=== PATIENT | female | born 1965 | race Caucasian/White ===

== ENCOUNTER 2018-10-22 15:46 | Emergency (ER) | payer OTHER ==
[2018-10-22 16:54] LABS: Absolute Lymphocytes (CBC) 2.2 K/uL (0.7-4.9); Absolute Monocytes 0.5 K/uL (0.1-1.3); Absolute Neutrophil 4.5 K/uL (1.8-8.0); Basophils % 0.5 % (0-1.3); Eosinophils % 3.3 % (0-4.4); Hematocrit 38.7 % (36.0-45.0); Lymphocytes % 29.7 % (15.3-44.8); MPV 8.1 fL (7.6-11.3); Monocytes % 6.5 % (3.3-12.3)
[2018-10-22 17:09] LABS: Albumin 3.9 g/dL (3.4-5.0); Bilirubin Total 0.3 mg/dL (0.2-1.0); Potassium 3.6 mmol/L (3.5-5.1); Protein, Total 7.9 g/dL (6.4-8.2)
--- NOTE | 2018-10-22 17:30 | ER ---
Nurse's Notes [facility] Name: Vivian Bautista Age: 53 yrs Sex: Female : 1965 Arrival Date: 10/22/2018 Time: 15:54 Bed 30 Private MD: VERA ARIAS Diagnosis: Shortness of breath Presentation: 10/22 16:05 Presenting complaint: Patient states: sent by Bernadette Arias [employer]PUT[employer] SCI[employer] PROFESS[employer] for low hemoglobin sv of 7.4. c/o generalized weakness and SOB. Transition of care: patient was not received from another setting of care. Onset of symptoms was October 22, 2018. Care prior to arrival: None. 16:05 Method Of Arrival: Ambulatory sv 16:05 Acuity: FOREST 3 sv 16:15 Initial Sepsis Screen: Does the patient meet any 2 criteria? No. Patient's initial rb1 sepsis screen is negative. Does the patient have a suspected source of infection? No. Patient's initial sepsis screen is negative. 16:15 Risk Assessment: Do you want to hurt yourself or someone else? Patient reports no rb1 desire to harm self or others. 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 [Active]; paroxetine HCl 40 mg oral tab 1 tab once daily [Active]; cyclobenzaprine 10 mg Oral tab 1 tab as needed [Active]; Tylenol-Codeine #4 300-60 mg Oral tab 1 tab as needed [Active]; Fioricet 50-300-40 mg Oral cap 1 cap as needed [Active]; sumatriptan Succinate 50 mg 1 tabs as needed [Active]; - PMHx: 16:07 Anxiety; Diabetes - NIDDM; Hypertension; sv - PSHx: 16:07 Hysterectomy; ; sv - Immunization history:: Adult Immunizations up to date. - Social history:: Patient/guardian denies using alcohol, street drugs, The patient lives with family, Smoking status: Patient uses tobacco products, denies chronic smoking, but will smoke occasionally. - Family history:: not pertinent. - Ebola Screening: : Patient negative for fever greater than or equal to 101.5 degrees Fahrenheit, and additional compatible Ebola Virus Disease symptoms. Screenin:15 Abuse screen: Denies threats or abuse. Nutritional screening: No deficits noted. rb1 Tuberculosis screening: No symptoms or risk factors identified. Fall Risk None identified. Assessment: 16:15 General: Appears in no apparent distress. comfortable, Behavior is calm, cooperative, rb1 Reports fatigue for Denies fever. Pain: Denies pain. Neuro: Level of Consciousness is awake, alert, obeys commands, Oriented to person, place, time, situation. Cardiovascular: Capillary refill < 3 seconds is brisk in bilateral fingers. Respiratory: Airway is patent Respiratory effort is even, unlabored, Respiratory pattern is regular, symmetrical. GI: No signs and/or symptoms were reported involving the gastrointestinal system. : No signs and/or symptoms were reported regarding the genitourinary system. Derm: Skin is dry, Skin is normal, Skin temperature is warm. Musculoskeletal: Range of motion: intact in all extremities. 17:15 Reassessment: Patient appears in no apparent distress at this time. No changes from rb1 previously documented assessment. at bedside. 17:50 Reassessment: Patient appears in no apparent distress at this time. Patient and/or rb1 family updated on plan of care and expected duration. Pain level reassessed. Patient is alert, oriented x 3, equal unlabored respirations, skin warm/dry/pink. Patient denies pain at this time. Vital Signs: 16:07 BP 121 / 89; Pulse 88; Resp 18; Temp 97; Pulse Ox 98% ; Weight 78.93 kg; Height 5 ft. 2 sv in. (157.48 cm); 16:15 BP 115 / 81; Pulse 79; Resp 17; Pulse Ox 100% on R/A; Pain 0/10; rb1 17:15 BP 118 / 81; Pulse 79; Resp 19; Pulse Ox 99% on R/A; rb1 17:55 BP 121 / 79; Pulse 83; Resp 18; Pulse Ox 100% on R/A; Pain 0/10; rb1 16:07 Body Mass Index 31.83 (78.93 kg, 157.48 cm) sv ED Course: 15:54 Patient arrived in ED. sb2 15:55 VERA ARIAS is Private Physician. sb2 16:06 Triage completed. sv 16:09 Arm band placed on Patient placed in an exam room, Patient notified of wait time. sv 16:13 Rebecca Barriga, RN is Primary Nurse. rb1 16:15 Patient has correct armband on for positive identification. Bed in low position. Call rb1 light in reach. Side rails up X 1. Pulse ox on. NIBP on. 16:16 Ophelia Carrera MD is Attending Physician. ma2 16:40 Inserted saline lock: 22 gauge in right antecubital area, using aseptic technique. rb1 Blood collected. 16:44 sent to lab. rb1 18:00 No provider procedures requiring assistance completed. IV discontinued, intact, rb1 bleeding controlled, No redness/swelling at site. Pressure dressing applied. Administered Medications: No medications were administered Outcome: 17:29 Discharge ordered by . ma2 18:00 Patient left the ED. rb1 18:00 Discharged to home ambulatory, with significant other. rb1 18:00 Condition: stable 18:00 Discharge instructions given to patient, Instructed on discharge instructions, follow up and referral plans. Demonstrated understanding of instructions, follow-up care, Prescriptions given X none Signatures: Bernadette Jackson RN RN Rebecca Barriga, RN RN [facility] Ophelia Carrera MD MD ma2 Shona Shirley sb2 Corrections: (The following items were deleted from the chart) 16:09 16:07 Pulse 88bpm; Resp 18bpm; Pulse Ox 98%; Temp 97F; 78.93 kg; Height 5 ft. 2 in.; sv BMI: 31.8; sv 18:32 18:28 Patient left the ED. rb1 rb1
--- NOTE | 2018-10-22 17:30 | EDPHYS ---
Physician Documentation [facility] Name: Vivian Bautista Age: 53 yrs Sex: Female : 1965 Arrival Date: 10/22/2018 Time: 15:54 Bed 30 Private MD: VERA ARIAS ED Physician Ophelia Carrera HPI: 10/22 16:23 This 53 yrs old Female presents to ER via Ambulatory with complaints of ma2 Abnormal Lab Results. 16:23 sent from clinic for transfusion and symptomatic anemia has sob on exertion . Severity ma2 of symptoms: At their worst the symptoms were moderate in the emergency department the symptoms are unchanged. The patient has not experienced similar symptoms in the past. no gi bleeding or vaginal bleeding . 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 [Active]; paroxetine HCl 40 mg oral tab 1 tab once daily [Active]; cyclobenzaprine 10 mg Oral tab 1 tab as needed [Active]; Tylenol-Codeine #4 300-60 mg Oral tab 1 tab as needed [Active]; Fioricet 50-300-40 mg Oral cap 1 cap as needed [Active]; sumatriptan Succinate 50 mg 1 tabs as needed [Active]; - PMHx: 16:07 Anxiety; Diabetes - NIDDM; Hypertension; sv - PSHx: 16:07 Hysterectomy; ; sv - Immunization history:: Adult Immunizations up to date. - Social history:: Patient/guardian denies using alcohol, street drugs, The patient lives with family, Smoking status: Patient uses tobacco products, denies chronic smoking, but will smoke occasionally. - Family history:: not pertinent. - Ebola Screening: : Patient negative for fever greater than or equal to 101.5 degrees Fahrenheit, and additional compatible Ebola Virus Disease symptoms. ROS: 16:23 Constitutional: Negative for fever, chills, and weight loss, Cardiovascular: Negative ma2 for chest pain, palpitations, and edema, Respiratory: Negative for shortness of breath, cough, wheezing, and pleuritic chest pain, Abdomen/GI: Negative for abdominal pain, nausea, diarrhea, and constipation. 16:23 Respiratory: Negative for shortness of breath, cough, wheezing, and pleuritic chest pain. 16:23 Constitutional: Negative for fever, chills, and weight loss. 16:23 Constitutional: Positive for fatigue, malaise, Negative for chills, weight loss. 16:23 Respiratory: Positive for dyspnea on exertion, Negative for cough, orthopnea, shortness of breath, sputum production, acute changes. 16:23 All other systems are negative. Exam: 16:23 Constitutional: This is a well developed, well nourished patient who is awake, alert, ma2 and in no acute distress. Neck: Trachea midline, no thyromegaly or masses palpated, and no cervical lymphadenopathy. Supple, full range of motion without nuchal rigidity, or vertebral point tenderness. No Meningismus. Chest/axilla: Normal chest wall appearance and motion. Nontender with no deformity. No lesions are appreciated. Cardiovascular: Regular rate and rhythm with a normal S1 and S2. No gallops, murmurs, or rubs. Normal PMI, no JVD. No pulse deficits. Respiratory: Lungs have equal breath sounds bilaterally, clear to auscultation and percussion. No rales, rhonchi or wheezes noted. No increased work of breathing, no retractions or nasal flaring. Abdomen/GI: Soft, non-tender, with normal bowel sounds. No distension or tympany. No guarding or rebound. No evidence of tenderness throughout. Skin: Warm, dry with normal turgor. Normal color with no rashes, no lesions, and no evidence of cellulitis. MS/ Extremity: Pulses equal, no cyanosis. Neurovascular intact. Full, normal range of motion. Neuro: Awake and alert, GCS 15, oriented to person, place, time, and situation. Cranial nerves II-XII grossly intact. Motor strength 5/5 in all extremities. Sensory grossly intact. Cerebellar exam normal. Normal gait. Vital Signs: 16:07 BP 121 / 89; Pulse 88; Resp 18; Temp 97; Pulse Ox 98% ; Weight 78.93 kg; Height 5 ft. 2 sv in. (157.48 cm); 16:15 BP 115 / 81; Pulse 79; Resp 17; Pulse Ox 100% on R/A; Pain 0/10; rb1 17:15 BP 118 / 81; Pulse 79; Resp 19; Pulse Ox 99% on R/A; rb1 17:55 BP 121 / 79; Pulse 83; Resp 18; Pulse Ox 100% on R/A; Pain 0/10; rb1 16:07 Body Mass Index 31.83 (78.93 kg, 157.48 cm) sv MDM: 16:16 Patient medically screened. ma2 16:23 Differential Diagnosis severe anemia . Differential Diagnosis symptomatic anemia . Data ma2 reviewed: vital signs, nurses notes. Counseling: I had a detailed discussion with the patient and/or guardian regarding: the historical points, exam findings, and any diagnostic results supporting the discharge/admit diagnosis, the presence of at least one elevated blood pressure reading (>120/80) during this emergency department visit, the need for further work-up and treatment in the hospital. 17:28 ED course: labs wnl hb is 13, . [facility] 10/22 16:16 Order name: CBC with Diff [facility] 10/22 16:16 Order name: CMP; Complete Time: 17:28 [facility] 10/22 17:30 Interpretation: Abnormal. [facility] 10/22 16:23 Order name: Urine Dipstick-Ancillary (obtain specimen); Complete Time: 18:33 [facility] 10/22 17:13 Order name: Urine Dipstick--Ancillary (enter results) bd Administered Medications: No medications were administered Disposition: 10/22/18 17:29 Discharged to Home. Impression: Shortness of breath. - Condition is Stable. - Discharge Instructions: Shortness of Breath, [id number]. - Medication Reconciliation Form, Thank You Letter, Antibiotic Education, Prescription Opioid Use form. - Follow up: Private Physician; When: Tomorrow; Reason: Continuance of care. Signatures: Dispatcher [employer] Bernadette Cortez RN RN sv Barber, Rebecca, RN RN rb1 Ophelia Carrera MD MD ma2 Corrections: (The following items were deleted from the chart) 18:28 17:29 10/22/2018 17:29 Discharged to Home. Impression: Shortness of breath. Condition rb1 is Stable. Forms are Medication Reconciliation Form, Thank You Letter, Antibiotic Education, Prescription Opioid Use. Follow up: Private Physician; When: Tomorrow; Reason: Continuance of care. ma2
[2018-10-22 17:47] LABS: Urine Blood NEGATIVE (NEG); Urine Glucose 1+ (NEG); Urine Protein NEGATIVE (NEG); Urine Specific Gravity >1.030 (1.005-1.030)
== END 2018-10-22 18:28 | disposition home or self-care (01) ==
LOC: ER 15:46
DX: R06.02 Shortness of breath (principal); F41.9 Anxiety disorder, unspecified; E11.9 Type 2 diabetes mellitus without complications; I10 Essential (primary) hypertension; Z72.0 Tobacco use
CPT/HCPCS: 36415; 80053; 81003; 85025; 99284

== ENCOUNTER 2018-12-22 20:50 | Emergency (ER) | payer OTHER ==
--- OUTSIDE RECORDS SUMMARY | 2018-12-22 20:51 | XMS REPORT ---
:1965 [facility] [address] [place] [address] [place] [id number] Care Team Providers Name Role Phone Unavailable Unavailable Unavailable Problems This patient has no known problems. Allergies, Adverse Reactions, Alerts This patient has no known allergies or adverse reactions. Medications This patient has no known medications.
[2018-12-22] MEDS ORDERED: NA CHLORIDE 0.9% 1,000 ML ONE (21:26)
[2018-12-22] MEDS ORDERED: KETOROLAC 30 MG/ML INJ ONE (21:26)
[2018-12-22] MEDS ORDERED: DIPHENHYDRAMINE 50 MG/ML VIAL ONE (21:26)
[2018-12-22] MEDS ORDERED: METOCLOPRAMIDE 10 MG/2mL INJ ONE (21:26)
--- NOTE | 2018-12-22 21:44 | EDPHYS ---
Physician Documentation [facility] Name: Vivian Bautista Age: 53 yrs Sex: Female : 1965 Arrival Date: 12/22/2018 Time: 20:54 Bed 15 Private MD: ED Physician Schuyler Genao HPI: 12/22 21:11 This 53 yrs old Female presents to ER via Unassigned with complaints of kb Headache. 21:11 The patient complains of pain to the top of head, right mosque and left mosque. The kb patient describes the headache as throbbing. Onset: The symptoms/episode began/occurred 3 day(s) ago. Associated signs and symptoms: Pertinent positives: Photophobia Pertinent negatives: dizziness, fever, nausea, vision loss, vomiting. Severity of symptoms: At its worst the pain was moderate, in the emergency department the pain is unchanged. Headache History: The patient has had previous headaches and this one is similar to previous episodes. The symptoms are alleviated by nothing. the symptoms are aggravated by lights. The patient has experienced similar episodes in the past, chronically. The patient has not recently seen a physician. Pt reports she has had a migraine for 3 days. Had MRI on and the pain has been going on since then after laying in the machine for so long. States she has taken her sumatriptan, fioricet, gabapentin and tylenol #4 and those help for a little bit, but the pain comes back. . 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 [Active]; Kombiglyze XR 2.5-1,000 mg Oral TM24 1 tab once daily [Active]; losartan 100 mg Oral tab 1 tab once daily [Active]; diltiazem HCl 90 mg Oral tab 1 tab twice a day [Active]; metformin 850 mg Oral tab 1 tab 2 times per day [Active]; paroxetine HCl 40 mg Oral tab 1 tab once daily [Active]; paroxetine HCl 40 mg Oral tab 1 tab once daily [Active]; sumatriptan Succinate 50 mg 1 tabs as needed [Active]; Tylenol-Codeine #4 300-60 mg Oral tab 1 tab as needed [Active]; - PMHx: 21:00 Anxiety; Hypertension; Diabetes - NIDDM; irregular heartbeat; Migraines; jb4 - PSHx: 21:00 Hysterectomy; ; jb4 - Immunization history:: Adult Immunizations up to date, Pneumococcal vaccine is not up to date. - Social history:: Smoking status: Patient/guardian denies using tobacco, Patient/guardian denies using alcohol. - Ebola Screening: : No symptoms or risks identified at this time. ROS: 21:11 Constitutional: Negative for fever, chills, and weight loss, ENT: Negative for injury, kb pain, and discharge, Neck: Negative for injury, pain, and swelling, Cardiovascular: Negative for chest pain, palpitations, and edema, Respiratory: Negative for shortness of breath, cough, wheezing, and pleuritic chest pain, Abdomen/GI: Negative for abdominal pain, nausea, vomiting, diarrhea, and constipation, Back: Negative for injury and pain, : Negative for injury, bleeding, discharge, and swelling, MS/Extremity: Negative for injury and deformity, Skin: Negative for injury, rash, and discoloration. 21:11 Neuro: Positive for headache. Exam: 21:11 Constitutional: This is a well developed, well nourished patient who is awake, alert, kb and in no acute distress. Head/Face: Normocephalic, atraumatic. ENT: Nares patent. No nasal discharge, no septal abnormalities noted. Tympanic membranes are normal and external auditory canals are clear. Oropharynx with no redness, swelling, or masses, exudates, or evidence of obstruction, uvula midline. Mucous membranes moist. Neck: Trachea midline, no thyromegaly or masses palpated, and no cervical lymphadenopathy. Supple, full range of motion without nuchal rigidity, or vertebral point tenderness. No Meningismus. Chest/axilla: Normal chest wall appearance and motion. Nontender with no deformity. No lesions are appreciated. Cardiovascular: Regular rate and rhythm with a normal S1 and S2. No gallops, murmurs, or rubs. Normal PMI, no JVD. No pulse deficits. Respiratory: Lungs have equal breath sounds bilaterally, clear to auscultation and percussion. No rales, rhonchi or wheezes noted. No increased work of breathing, no retractions or nasal flaring. Abdomen/GI: Soft, non-tender, with normal bowel sounds. No distension or tympany. No guarding or rebound. No evidence of tenderness throughout. Back: No spinal tenderness. No costovertebral tenderness. Full range of motion. Skin: Warm, dry with normal turgor. Normal color with no rashes, no lesions, and no evidence of cellulitis. MS/ Extremity: Pulses equal, no cyanosis. Neurovascular intact. Full, normal range of motion. Neuro: Awake and alert, GCS 15, oriented to person, place, time, and situation. Cranial nerves II-XII grossly intact. Motor strength 5/5 in all extremities. Sensory grossly intact. Cerebellar exam normal. Normal gait. Vital Signs: 21:00 BP 114 / 64; Pulse 78; Resp 16; Temp 98.3(O); Pulse Ox 97% on R/A; Weight 79.38 kg (R); jb4 Height 5 ft. 2 in. (157.48 cm) (R); Pain 10/10; 22:00 BP 118 / 65; Pulse 60; Resp 16; Pulse Ox 99% on R/A; jb4 21:00 Body Mass Index 32.01 (79.38 kg, 157.48 cm) jb4 Macey Coma Score: 21:10 Eye Response: spontaneous(4). Verbal Response: oriented(5). Motor Response: obeys kb commands(6). Total: 15. Procedures: 21:24 Peripheral line: by aseptic technique a peripheral line was placed in the right antecubital vein. MDM: 20:57 Patient medically screened. kb 21:10 Data reviewed: vital signs, nurses notes. Data interpreted: Pulse oximetry: on room air kb is 97 %. Interpretation: normal. Counseling: I had a detailed discussion with the patient and/or guardian regarding: the historical points, exam findings, and any diagnostic results supporting the discharge/admit diagnosis, the need for outpatient follow up, a family practitioner, to return to the emergency department if symptoms worsen or persist or if there are any questions or concerns that arise at home. 21:43 Response to treatment: the patient's symptoms have markedly improved after treatment. 12/22 21:10 Order name: IV Start; Complete Time: :24 kb Administered Medications: : Drug: NS 0.9% 1000 ml Route: IV; Rate: 1000 ml; Site: right antecubital; kb 22:00 Follow up: Response: No adverse reaction; IV Status: Completed infusion; IV Intake: jb4 1000ml :24 Drug: Reglan 10 mg Route: IVP; Site: right antecubital; kb 22:00 Follow up: Response: No adverse reaction jb4 :24 Drug: TORadol 30 mg Route: IVP; Site: right antecubital; kb 22:00 Follow up: Response: No adverse reaction; Marked relief of symptoms jb4 Drug: Benadryl 12.5 mg Route: IVP; Site: right antecubital; kb 22:24 Follow up: Response: No adverse reaction; Marked relief of symptoms jb4 Disposition: 12/23 07:06 Co-signature as Attending Physician, Schuyler Genao MD I agree with the assessment and 4 plan of care. Disposition: 12/22/18 21:43 Discharged to Home. Impression: Migraine. - Condition is Stable. - Discharge Instructions: Migraine Headache, [id number]. - Medication Reconciliation Form, Thank You Letter, Antibiotic Education, Prescription Opioid Use form. - Follow up: Emergency Department; When: As needed; Reason: Worsening of condition. Follow up: Private Physician; When: 2 - 3 days; Reason: Recheck today's complaints, Continuance of care, Re-evaluation by your physician. Signatures: Jennifer Cohn FNP-C FNP-Edgar Turner, RN RN jb4 Schuyler Genao MD MD tw4 Corrections: (The following items were deleted from the chart) 12/22 22:25 21:43 12/22/2018 21:43 Discharged to Home. Impression: Migraine. Condition is Stable. jb4 Discharge Instructions: Migraine Headache, [id number]. Forms are Medication Reconciliation Form, Thank You Letter, Antibiotic Education, Prescription Opioid Use. Follow up: Emergency Department; When: As needed; Reason: Worsening of condition. Follow up: Private Physician; When: 2 - 3 days; Reason: Recheck today's complaints, Continuance of care, Re-evaluation by your physician. kb
--- NOTE | 2018-12-22 21:44 | ER ---
Nurse's Notes [facility] Name: Vivian Bautista Age: 53 yrs Sex: Female : 1965 Arrival Date: 12/22/2018 Time: 20:54 Bed 15 Private MD: Diagnosis: Migraine Presentation: 12/22 21:00 Presenting complaint: Patient states: I have been having a migraine headache that jb4 started on . 21:00 Transition of care: patient was not received from another setting of care. Onset of jb4 symptoms was December 20, 2018. Risk Assessment: Do you want to hurt yourself or someone else? Patient reports no desire to harm self or others. Initial Sepsis Screen: Does the patient meet any 2 criteria? No. Patient's initial sepsis screen is negative. Does the patient have a suspected source of infection? No. Patient's initial sepsis screen is negative. Care prior to arrival: None. 21:00 Method Of Arrival: Ambulatory jb4 21:00 Acuity: FOREST 3 jb4 Triage Assessment: 21:00 Headache History: The patient has had previous headaches and this one is similar to jb4 previous episodes. General: Appears in no apparent distress. uncomfortable. Pain: Also complains of. Pain: Complains of pain in Headache. 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 [Active]; Kombiglyze XR 2.5-1,000 mg Oral TM24 1 tab once daily [Active]; losartan 100 mg Oral tab 1 tab once daily [Active]; diltiazem HCl 90 mg Oral tab 1 tab twice a day [Active]; metformin 850 mg Oral tab 1 tab 2 times per day [Active]; paroxetine HCl 40 mg Oral tab 1 tab once daily [Active]; paroxetine HCl 40 mg Oral tab 1 tab once daily [Active]; sumatriptan Succinate 50 mg 1 tabs as needed [Active]; Tylenol-Codeine #4 300-60 mg Oral tab 1 tab as needed [Active]; - PMHx: 21:00 Anxiety; Hypertension; Diabetes - NIDDM; irregular heartbeat; Migraines; jb4 - PSHx: 21:00 Hysterectomy; ; jb4 - Immunization history:: Adult Immunizations up to date, Pneumococcal vaccine is not up to date. - Social history:: Smoking status: Patient/guardian denies using tobacco, Patient/guardian denies using alcohol. - Ebola Screening: : No symptoms or risks identified at this time. Screenin:00 Abuse screen: Denies threats or abuse. Nutritional screening: No deficits noted. jb4 Tuberculosis screening: No symptoms or risk factors identified. Fall Risk None identified. Assessment: 21:00 General: Appears in no apparent distress. uncomfortable, Behavior is calm, cooperative, jb4 appropriate for age. Pain: Complains of pain in headache Pain radiates to right eye and left eye Pain currently is 9 out of 10 on a pain scale. Quality of pain is described as pressure, Pain began 2-3 days ago. Neuro: Level of Consciousness is awake, alert, obeys commands, Oriented to person, place, time, situation. Cardiovascular: Patient's skin is warm and dry. Respiratory: Airway is patent Respiratory effort is even, unlabored, Respiratory pattern is regular, symmetrical. GI: No signs and/or symptoms were reported involving the gastrointestinal system. : No signs and/or symptoms were reported regarding the genitourinary system. EENT: No signs and/or symptoms were reported regarding the EENT system. Derm: Skin is intact, Skin is pink, warm \T\ dry. Musculoskeletal: Circulation, motion, and sensation intact. 22:00 Reassessment: Patient appears in no apparent distress at this time. Patient and/or jb4 family updated on plan of care and expected duration. Pain level reassessed. Patient is alert, oriented x 3, equal unlabored respirations, skin warm/dry/pink. Vital Signs: 21:00 BP 114 / 64; Pulse 78; Resp 16; Temp 98.3(O); Pulse Ox 97% on R/A; Weight 79.38 kg (R); jb4 Height 5 ft. 2 in. (157.48 cm) (R); Pain 10/10; 22:00 BP 118 / 65; Pulse 60; Resp 16; Pulse Ox 99% on R/A; jb4 21:00 Body Mass Index 32.01 (79.38 kg, 157.48 cm) jb4 Macey Coma Score: 21:10 Eye Response: spontaneous(4). Verbal Response: oriented(5). Motor Response: obeys kb commands(6). Total: 15. ED Course: 20:54 Patient arrived in ED. mr 20:56 Jennifer Cohn, [facility]. kb 20:56 Schuyler Genao MD is Attending Physician. kb 21:00 Arm band placed on left wrist. jb4 21:00 Patient has correct armband on for positive identification. Bed in low position. Call jb4 light in reach. Side rails up X 1. Pulse ox on. NIBP on. 21:00 Inserted saline lock: 20 gauge in right antecubital area, using aseptic technique. jb4 ,using aseptic technique. inserted by JUAN Choe physician. 21:12 Edgar Monroy, RN is Primary Nurse. jb4 21:15 Triage completed. jb4 22:00 No provider procedures requiring assistance completed. IV discontinued, intact, jb4 bleeding controlled. Administered Medications: 21:24 Drug: NS 0.9% 1000 ml Route: IV; Rate: 1000 ml; Site: right antecubital; kb 22:00 Follow up: Response: No adverse reaction; IV Status: Completed infusion; IV Intake: jb4 1000ml 21:24 Drug: Reglan 10 mg Route: IVP; Site: right antecubital; kb 22:00 Follow up: Response: No adverse reaction jb4 21:24 Drug: TORadol 30 mg Route: IVP; Site: right antecubital; kb 22:00 Follow up: Response: No adverse reaction; Marked relief of symptoms jb4 21:25 Drug: Benadryl 12.5 mg Route: IVP; Site: right antecubital; kb 22:24 Follow up: Response: No adverse reaction; Marked relief of symptoms jb4 Intake: 22:00 IV: 1000ml; Total: 1000ml. jb4 Outcome: :43 Discharge ordered by . kb 22:00 Discharged to home ambulatory. jb4 22:00 Condition: stable 22:00 Discharge instructions given to patient, family, Instructed on discharge instructions, follow up and referral plans. Demonstrated understanding of instructions, follow-up care. 22:25 Patient left the ED. jb4 Signatures: Jennifer Cohn, BRENTON PEREZ-Judith Palma James, RN RN jb4
== END 2018-12-22 22:25 | disposition home or self-care (01) ==
LOC: ER 20:50
PROC: 05HB33Z Insertion of Infusion Device into Right Basilic Vein, Percutaneous Approach (ICD-10-PCS; principal; 2018-12-22)
DX: G43.909 Migraine, unspecified, not intractable, without status migrainosus (principal); I10 Essential (primary) hypertension; E11.9 Type 2 diabetes mellitus without complications; F41.9 Anxiety disorder, unspecified
CPT/HCPCS: 96361; 96374; 96375; 99283; J2765; J7030

== ENCOUNTER 2019-02-08 08:29 | Emergency (ER) | payer OTHER ==
--- OUTSIDE RECORDS SUMMARY | 2019-02-08 08:31 | XMS REPORT ---
:1965 Author Organization [facility] Address [address] [place] [id number] Care Team Providers Name Role Phone Unavailable Unavailable Unavailable Problems This patient has no known problems. Allergies, Adverse Reactions, Alerts This patient has no known allergies or adverse reactions. Medications This patient has no known medications.
[2019-02-08] MEDS ORDERED: FAMOTIDINE 20 MG/2 ML VIAL IV ONE (09:56)
[2019-02-08] MEDS ORDERED: DIPHENHYDRAMINE 50 MG/ML VIAL ONE (09:56)
[2019-02-08] MEDS ORDERED: METHYLPREDNISOLONE 125 MG INJ ONE (09:56)
[2019-02-08 12:13] LABS: Absolute Lymphocytes (CBC) 1.6 K/uL (0.7-4.9); Absolute Monocytes 0.3 K/uL (0.1-1.3); Absolute Neutrophil 7.8 K/uL (1.8-8.0); Basophils % 0.4 % (0-1.3); Hematocrit 36.7 % (36.0-45.0); Lymphocytes % 16.2 % (15.3-44.8); MPV 8.2 fL (7.6-11.3); Monocytes % 3.1 % (3.3-12.3); RBC Red Blood Cell Count 4.27 M/uL (3.86-4.86)
[2019-02-08 12:41] LABS: ALT/SGPT 27 U/L (12-78); AST/SGOT 19 U/L (15-37); Albumin 3.8 g/dL (3.4-5.0); Alkaline Phosphatase 84 U/L (45-117); BUN Blood Urea Nitrogen 16 mg/dL (7-18); Bicarbonate 24 mmol/L (21-32); Bilirubin Direct < 0.1 mg/dL (0-0.2); Bilirubin Total 0.2 mg/dL (0.2-1.0); Glucose Level 154 mg/dL (74-106); Lipase 431 U/L (73-393); Protein, Total 7.4 g/dL (6.4-8.2); Sodium Level 140 mmol/L (136-145)
--- NOTE | 2019-02-08 13:18 | RAD REPORT ---
EXAM DESCRIPTION: CTAbdomen Pelvis W Contrast - 02/08/2019 1:05 pm CLINICAL HISTORY: Abdominal pain. ABD PAIN COMPARISON: No comparisons TECHNIQUE: Biphasic CT imaging of the abdomen and pelvis was performed with 100 ml non-ionic IV cont rast. All CT scans are performed using dose optimization technique as appropriate and may include automated exposure control or mA/KV adjustment according to patient size. FINDINGS: The lung bases are clear. The liver is diffusely fatty. The spleen, pancreas, right adrenal gland and left kidney are within no rmal limits. Punctate stone is present in the right kidney without hydronephrosis. 14 mm left adrenal gland mass is present. No bowel obstruction, free air, free fluid or abscess. The appendix is normal. No evidence of signi ficant lymphadenopathy. No suspicious bony findings. IMPRESSION: No acute intra-abdominal or pelvic finding. Fatty liver. Punctate right renal stone without hydronephrosis.
--- NOTE | 2019-02-08 13:26 | EDPHYS ---
Physician Documentation [facility] Name: Vivian Bautista Age: 53 yrs Sex: Female : 1965 Arrival Date: 02/08/2019 Time: 08:32 Bed 15 Private MD: Bernadette Sanderson ED Physician Reinier Holguin HPI: 02/08 09:16 This 53 yrs old Female presents to ER via Ambulatory with complaints of Hives.kdr 09:16 The patient's rash thought to be caused by an unknown cause. The rash is located on the kdr Most significant uner her breasts and bilateral groin but also sporadic around her trunk.. The rash can be described as erythematous, macular, papular, patchy, urticarial. Onset: The symptoms/episode began/occurred acutely, last night, Yesterday at about 5:00 PM. Associated signs and symptoms: Pertinent positives: itching, Pain swelling of throat. Severity of symptoms: At their worst the symptoms were mild just prior to arrival, in the emergency department the symptoms are unchanged. Treatment given at home: Benadryl. The patient has not experienced similar symptoms in the past, Does have an allergy to poison ralph but no other allergies. The patient has not recently seen a physician. 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 - Social history:: Smoking status: Patient/guardian denies using tobacco. - Ebola Screening: : No symptoms or risks identified at this time. ROS: 09:16 Constitutional: Negative for fever, chills, and weight loss, Eyes: Negative for injury, kdr pain, redness, and discharge, ENT: Negative for injury, pain, and discharge, Neck: Negative for injury, pain, and swelling, Cardiovascular: Negative for chest pain, palpitations, and edema, Respiratory: Negative for shortness of breath, cough, wheezing, and pleuritic chest pain, Abdomen/GI: Negative for abdominal pain, nausea, vomiting, diarrhea, and constipation, Back: Negative for injury and pain, : Negative for injury, bleeding, discharge, and swelling, MS/Extremity: Negative for injury and deformity, Neuro: Negative for headache, weakness, numbness, tingling, and seizure activity. Psych: Negative for depression, anxiety, suicide ideation, homicidal ideation, and hallucinations, Allergy/Immunology: Negative for hives, rash, and allergies, Endocrine: Negative for neck swelling, polydipsia, polyuria, polyphagia, and marked weight changes, Hematologic/Lymphatic: Negative for swollen nodes, abnormal bleeding, and unusual bruising. 09:16 Skin: Positive for rash. Exam: 13:24 Constitutional: This is a well developed, well nourished patient who is awake, alert, kdr and in no acute distress. Head/Face: Normocephalic, atraumatic. Eyes: Pupils equal round and reactive to light, extra-ocular motions intact. Lids and lashes normal. Conjunctiva and sclera are non-icteric and not injected. Cornea within normal limits. Periorbital areas with no swelling, redness, or edema. Neck: Trachea midline, no thyromegaly or masses palpated, and no cervical lymphadenopathy. Supple, full range of motion without nuchal rigidity, or vertebral point tenderness. No Meningismus. Chest/axilla: Normal chest wall appearance and motion. Nontender with no deformity. No lesions are appreciated. Cardiovascular: Regular rate and rhythm with a normal S1 and S2. No gallops, murmurs, or rubs. Normal PMI, no JVD. No pulse deficits. Respiratory: Lungs have equal breath sounds bilaterally, clear to auscultation and percussion. No rales, rhonchi or wheezes noted. No increased work of breathing, no retractions or nasal flaring. Abdomen/GI: Soft, non-tender, with normal bowel sounds. No distension or tympany. No guarding or rebound. No evidence of tenderness throughout. Back: No spinal tenderness. No costovertebral tenderness. Full range of motion. MS/ Extremity: Pulses equal, no cyanosis. Neurovascular intact. Full, normal range of motion. Neuro: Awake and alert, GCS 15, oriented to person, place, time, and situation. Cranial nerves II-XII grossly intact. Motor strength 5/5 in all extremities. Sensory grossly intact. Cerebellar exam normal. Normal gait. Psych: Awake, alert, with orientation to person, place and time. Behavior, mood, and affect are within normal limits. 13:24 Skin: rash a moderate rash is noted, rash can be described as erythematous, macular, nonspecific, papular, on the right breast and left breast. Vital Signs: 09:05 BP 147 / 91; Pulse 85; Resp 16; Temp 98.3; Pulse Ox 96% on R/A; Weight 83.91 kg; Height hb 5 ft. 5 in. (165.10 cm); Pain 9/10; 10:00 BP 124 / 82; Pulse 84; Resp 17; Pulse Ox 99% ; hb 11:00 BP 145 / 89; Pulse 87; Resp 15; Pulse Ox 99% on R/A; hb 12:00 BP 125 / 88; Pulse 71; Resp 16; Pulse Ox 100% on R/A; hb 13:15 BP 131 / 84; Pulse 78; Resp 14; Pulse Ox 97% on R/A; Pain 2/10; hb 09:05 Body Mass Index 30.79 (83.91 kg, 165.10 cm) hb MDM: 13:24 Data reviewed: vital signs, nurses notes, lab test result(s). Counseling: I had a kdr detailed discussion with the patient and/or guardian regarding: the historical points, exam findings, and any diagnostic results supporting the discharge/admit diagnosis, lab results, radiology results, the need for outpatient follow up. 13:26 Patient medically screened. kdr 02/08 11:34 Order name: CBC with Diff kdr 02/08 11:34 Order name: Basic Metabolic Panel; Complete Time: 12:56 kdr 02/08 11:34 Order name: Creatinine for Radiology; Complete Time: 12:56 kdr 02/08 11:34 Order name: Hepatic Function; Complete Time: 12:56 kdr 02/08 11:34 Order name: Lipase; Complete Time: 12:56 kdr 02/08 11:34 Order name: CBC with Automated Diff; Complete Time: 12:56 EDMS 02/08 09:20 Order name: IV Saline Lock; Complete Time: 09:20 ms 02/08 11:34 Order name: Labs collected and sent; Complete Time: 11:47 kdr 02/08 11:34 Order name: CT Abd/Pelvis - W/Contrast; Complete Time: 13:22 kdr Administered Medications: 09:44 Drug: Pepcid 20 mg Route: IVP; Site: right antecubital; iw 10:22 Follow up: Response: No adverse reaction hb 09:48 Drug: Benadryl 25 mg Route: IVP; Site: right antecubital; iw 10:22 Follow up: Response: No adverse reaction hb 09:51 Drug: SOLU-Medrol 125 mg Route: IVP; Site: right antecubital; iw 10:22 Follow up: Response: No adverse reaction hb Disposition: 02/08/19 13:26 Discharged to Home. Impression: Rash and other nonspecific skin eruption, Abdominal and pelvic pain. - Condition is Stable. - Discharge Instructions: Abdominal Pain, Adult, Pkde-[id number], Rash, Bgor-fy-Rtct. - Prescriptions for Benadryl 25 mg Oral Capsule - take 1 capsule by ORAL route every 6 hours As needed; 30 tablet. Clotrimazole 1 % Topical Cream - Apply to affected area 1 application by TOPICAL route every 12 hours; 15 gram. Medrol (Francesco) 4 mg Oral Tablets, Dose Pack - take 1 tablet by ORAL route as directed - follow package instructions; 1 packet. Pepcid 20 mg Oral Tablet - take 1 tablet by ORAL route once daily; 20 tablet. Zofran 4 mg Oral Tablet - take 1 tablet by ORAL route every 12 hours As needed; 6 tablet. - Medication Reconciliation Form, Thank You Letter, Antibiotic Education form. - Follow up: Bernadette Sanderson; When: 2 - 3 days; Reason: If symptoms return, Further diagnostic work-up, Recheck today's complaints, Continuance of care, Re-evaluation by your physician. Signatures: Dispatcher [employer] EDMI Reinier Holguin MD MD kdr Williams, Irene, COURTNEY RN Bekah Mayer ms, Heather, COURTNEY RN Corrections: (The following items were deleted from the chart) 13:26 13:26 02/08/2019 13:26 Discharged to Home. Impression: Rash and other nonspecific skin kdr eruption. Condition is Stable. Forms are Medication Reconciliation Form, Thank You Letter, Antibiotic Education, Prescription Opioid Use. Follow up: Bernadette Sanderson; When: 2 - 3 days; Reason: If symptoms return, Further diagnostic work-up, Recheck today's complaints, Continuance of care, Re-evaluation by your physician. kdr 14:24 13:26 02/08/2019 13:26 Discharged to Home. Impression: Rash and other nonspecific skin hb eruption; Abdominal and pelvic pain. Condition is Stable. Forms are Medication Reconciliation Form, Thank You Letter, Antibiotic Education, Prescription Opioid Use. Follow up: Bernadette Sanderson; When: 2 - 3 days; Reason: If symptoms return, Further diagnostic work-up, Recheck today's complaints, Continuance of care, Re-evaluation by your physician. kdr
--- NOTE | 2019-02-08 13:26 | ER ---
Nurse's Notes [facility] Name: Vivian Bautista Age: 53 yrs Sex: Female : 1965 Arrival Date: 02/08/2019 Time: 08:32 Bed 15 Private MD: Bernadette Sanderson Diagnosis: Rash and other nonspecific skin eruption;Abdominal and pelvic pain Presentation: 02/08 09:06 Presenting complaint: Hives under both breasts, groin, and face since yesterday at hb 1800. Transition of care: patient was not received from another setting of care. Onset: The symptoms/episode began/occurred yesterday. 09:06 Method Of Arrival: Ambulatory 09:06 Acuity: FOREST 4 hb 09:15 Anaphylaxis evaluation, the patient reports or I have noted the following symptoms hb which indicate a significant risk of anaphylaxis:. Onset of symptoms was February 08, 2019. Risk Assessment: Do you want to hurt yourself or someone else? Patient reports no desire to harm self or others. Initial Sepsis Screen: Does the patient meet any 2 criteria? No. Patient's initial sepsis screen is negative. Does the patient have a suspected source of infection? No. Patient's initial sepsis screen is negative. Care prior to arrival: None. 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 - Social history:: Smoking status: Patient/guardian denies using tobacco. - Ebola Screening: : No symptoms or risks identified at this time. Screenin:30 Abuse screen: Denies threats or abuse. Denies injuries from another. Nutritional hb screening: No deficits noted. Tuberculosis screening: No symptoms or risk factors identified. Fall Risk None identified. Assessment: 09:15 General: Appears in no apparent distress. Behavior is calm, cooperative. Pain: Pain hb currently is 9 out of 10 on a pain scale. Neuro: Level of Consciousness is awake, alert, obeys commands, Oriented to person, place, time, situation. Cardiovascular: Capillary refill < 3 seconds Patient's skin is warm and dry. Respiratory: Airway is patent Respiratory effort is even, unlabored, Respiratory pattern is regular, symmetrical, Breath sounds are clear bilaterally. GI: No signs and/or symptoms were reported involving the gastrointestinal system. : No signs and/or symptoms were reported regarding the genitourinary system. EENT: No signs and/or symptoms were reported regarding the EENT system. Derm: Rash noted that is bilateral inframammary line, bilateral groin, face. Musculoskeletal: No signs and/or symptoms reported regarding the musculoskeletal system. 10:00 Reassessment: Patient appears in no apparent distress at this time. No changes from hb previously documented assessment. Patient and/or family updated on plan of care and expected duration. Pain level reassessed. Patient is alert, oriented x 3, equal unlabored respirations, skin warm/dry/pink. 11:00 Reassessment: Patient appears in no apparent distress at this time. No changes from hb previously documented assessment. Patient and/or family updated on plan of care and expected duration. Pain level reassessed. Patient is alert, oriented x 3, equal unlabored respirations, skin warm/dry/pink. 12:00 Reassessment: Patient appears in no apparent distress at this time. No changes from hb previously documented assessment. Patient and/or family updated on plan of care and expected duration. Pain level reassessed. Patient is alert, oriented x 3, equal unlabored respirations, skin warm/dry/pink. 13:00 Reassessment: Patient appears in no apparent distress at this time. No changes from hb previously documented assessment. Patient and/or family updated on plan of care and expected duration. Pain level reassessed. Patient is alert, oriented x 3, equal unlabored respirations, skin warm/dry/pink. Vital Signs: 09:05 BP 147 / 91; Pulse 85; Resp 16; Temp 98.3; Pulse Ox 96% on R/A; Weight 83.91 kg; Height hb 5 ft. 5 in. (165.10 cm); Pain 9/10; 10:00 BP 124 / 82; Pulse 84; Resp 17; Pulse Ox 99% ; hb 11:00 BP 145 / 89; Pulse 87; Resp 15; Pulse Ox 99% on R/A; hb 12:00 BP 125 / 88; Pulse 71; Resp 16; Pulse Ox 100% on R/A; hb 13:15 BP 131 / 84; Pulse 78; Resp 14; Pulse Ox 97% on R/A; Pain 2/10; hb 09:05 Body Mass Index 30.79 (83.91 kg, 165.10 cm) hb ED Course: 08:32 Patient arrived in ED. mr 08:33 Bernadette Sanderson is Private Physician. mr 09:05 Anna Lyons, RN is Primary Nurse. hb 09:06 Triage completed. hb 09:07 Reinier Holguin MD is Attending Physician. kdr 09:20 Inserted saline lock: 20 gauge in right antecubital area, using aseptic technique. ms 10:30 Patient has correct armband on for positive identification. Placed in gown. Bed in low hb position. Call light in reach. Side rails up X 1. 11:22 Arm band placed on. hb 11:47 Initial lab(s) drawn, by me, sent to lab. ms 13:04 CT completed. Patient tolerated procedure well. Patient moved to CT via wheelchair. ls3 Patient moved back from CT. 13:06 CT Abd/Pelvis - W/Contrast In Process Unspecified. EDMS 13:25 Bernadette Sanderson is Referral Physician. kdr 14:15 No provider procedures requiring assistance completed. IV discontinued, intact, hb bleeding controlled, No redness/swelling at site. Pressure dressing applied. Administered Medications: 09:44 Drug: Pepcid 20 mg Route: IVP; Site: right antecubital; iw 10:22 Follow up: Response: No adverse reaction hb 09:48 Drug: Benadryl 25 mg Route: IVP; Site: right antecubital; iw 10:22 Follow up: Response: No adverse reaction hb 09:51 Drug: SOLU-Medrol 125 mg Route: IVP; Site: right antecubital; iw 10:22 Follow up: Response: No adverse reaction hb Outcome: 13:26 Discharge ordered by . kdr 14:15 Discharged to home ambulatory, with significant other. hb 14:15 Condition: stable 14:15 Discharge instructions given to patient, Instructed on discharge instructions, follow up and referral plans. medication usage, Demonstrated understanding of instructions, follow-up care, medications, Prescriptions given X 4. 14:24 Patient left the ED. hb Signatures: Dispatcher [employer] EDMS Reinier Holguin MD MD kdr Rivera, Mary mr Marcelle Wright, RN RN ibis Mayer, Bekah ms Eloy, Anna, COURTNEY RN Joycelyn Willis 3
== END 2019-02-08 14:24 | disposition home or self-care (01) ==
LOC: ER 08:29
DX: R21 Rash and other nonspecific skin eruption (principal); R10.2 Pelvic and perineal pain; I10 Essential (primary) hypertension; E11.9 Type 2 diabetes mellitus without complications; F41.9 Anxiety disorder, unspecified
CPT/HCPCS: 36415; 74177; 80048; 80076; 82962; 83690; 85025; 96374; 96375; 99284; J2930; Q9967

== ENCOUNTER 2019-04-01 12:46 | Emergency (ER) | payer OTHER ==
--- OUTSIDE RECORDS SUMMARY | 2019-04-01 12:48 | XMS REPORT ---
:1965 [facility] Address [address] [place] [address] Care Team Providers Name Role Phone Unavailable Unavailable Unavailable Problems This patient has no known problems. Allergies, Adverse Reactions, Alerts This patient has no known allergies or adverse reactions. Medications This patient has no known medications.
[2019-04-01 13:55] LABS: Basophils % 0.6 % (0-1.3); Eosinophils % 2.2 % (0-4.4); Hematocrit 40.8 % (36.0-45.0); Lymphocytes % 31.4 % (15.3-44.8); Monocytes % 5.7 % (3.3-12.3); RBC Red Blood Cell Count 4.71 M/uL (3.86-4.86)
[2019-04-01 14:03] LABS: Protime INR 0.97
[2019-04-01 14:17] LABS: ALT/SGPT 37 U/L (12-78); AST/SGOT 24 U/L (15-37); Alkaline Phosphatase 103 U/L (45-117); BUN Blood Urea Nitrogen 16 mg/dL (7-18); Bicarbonate 22 mmol/L (21-32); Bilirubin Total 0.3 mg/dL (0.2-1.0); Glucose Level 294 mg/dL (74-106); Magnesium 1.7 mg/dL (1.8-2.4); NT PRO-BNP 33 pg/mL (<125); Potassium 3.7 mmol/L (3.5-5.1); Protein, Total 8.1 g/dL (6.4-8.2); Sodium Level 139 mmol/L (136-145); Troponin (Emerg Dept Use Only) < 0.02 ng/mL (0.0-0.045)
--- NOTE | 2019-04-01 14:27 | RAD REPORT ---
EXAM DESCRIPTION: RAD - Chest Single View - 04/01/2019 2:18 pm CLINICAL HISTORY: Chest pain COMPARISON: May 2017 TECHNIQUE: AP portable chest image was obtained 1358 hours . FINDINGS: Lung volumes are relatively low but similar to comparison. No focal lung parenchymal proce ss. Heart and vasculature are normal. No measurable pleural effusion and no pneumothorax. No acute susanna ny abnormality seen. No acute aortic findings suspected. IMPRESSION: No acute cardiopulmonary process. No significant change from comparison.
--- NOTE | 2019-04-01 14:35 | ER ---
Nurse's Notes [facility] Name: Vivian Bautista Age: 53 yrs Sex: Female : 1965 Arrival Date: 04/01/2019 Time: 12:47 Bed 6 Private MD: Diagnosis: Palpitations;Hypomagnesemia Presentation: 04/01 12:57 Presenting complaint: states: she feels like skipping beats and felt SOB all hj morning today, denies chest pain; reports SOB;'. Transition of care: patient was not received from another setting of care. Onset of symptoms was April 01, 2019. Risk Assessment: Do you want to hurt yourself or someone else? Patient reports no desire to harm self or others. Initial Sepsis Screen: Does the patient meet any 2 criteria? No. Patient's initial sepsis screen is negative. Does the patient have a suspected source of infection? No. Patient's initial sepsis screen is negative. Care prior to arrival: None. 12:57 Method Of Arrival: Ambulatory 12:57 Acuity: FOREST 3 hj Triage Assessment: 15:00 General: Behavior is calm, cooperative. General: Appears in no apparent distress. ch uncomfortable. Pain: Denies pain. 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 - Social history:: Smoking status: Patient/guardian denies using tobacco, Patient/guardian denies using alcohol, street drugs. - Ebola Screening: : Patient negative for fever greater than or equal to 101.5 degrees Fahrenheit, and additional compatible Ebola Virus Disease symptoms Patient denies exposure to infectious person Patient denies travel to an Ebola-affected area in the 21 days before illness onset No symptoms or risks identified at this time. Screenin:51 Abuse screen: Denies threats or abuse. Denies injuries from another. Nutritional ch screening: No deficits noted. Tuberculosis screening: No symptoms or risk factors identified. Fall Risk None identified. Assessment: 13:51 Reassessment: Patient appears in no apparent distress at this time. Patient and/or ch family updated on plan of care and expected duration. Pain level reassessed. Patient is alert, oriented x 3, equal unlabored respirations, skin warm/dry/pink. General: Appears in no apparent distress. comfortable. Pain: Complains of pain in chest Pain does not radiate. Quality of pain is described as pressure, palpating Pain began gradually, today. Neuro: No deficits noted. Reports weakness. Cardiovascular: Reports palpitations, Heart tones S1 S2 present S2 is slightly muffled. Capillary refill < 3 seconds in bilateral fingers Clubbing of nail beds is absent Patient's skin is warm and dry. Respiratory: Airway is patent Breath sounds are clear bilaterally. GI: Abdomen is round non-distended, Reports diarrhea. : No signs and/or symptoms were reported regarding the genitourinary system. Vital Signs: 12:57 BP 123 / 72; Pulse 84; Resp 16; Temp 98.0(O); Pulse Ox 99% on R/A; Weight 79.38 kg; hj Height 5 ft. 3 in. (160.02 cm); 13:51 BP 126 / 77; Pulse 80; Resp 12; Temp 98.1; Pulse Ox 99% on R/A; Pain 2/10; ch 12:57 Body Mass Index 31.00 (79.38 kg, 160.02 cm) ED Course: 12:47 Patient arrived in ED. mr 12:59 Triage completed. hj 13:00 Arm band placed on left wrist. hj 13:02 Tom Conklin MD is Attending Physician. ps1 13:13 EKG done, by drafting technician. reviewed by Tom Conklin MD. at1 13:17 Initial lab(s) drawn, by nm. Inserted saline lock: 22 gauge in right antecubital area, jb1 using aseptic technique. Blood collected. 13:41 Jade Piña, RN is Primary Nurse. ch 13:51 No apparent distress. Resting quietly. ch 13:51 Patient has correct armband on for positive identification. cylinder checker on. Pulse ch ox on. NIBP on. 13:51 No provider procedures requiring assistance completed. Patient maintains SpO2 ch saturation greater than 95% on room air. 14:18 X-ray completed. Portable x-ray completed in exam room. Patient tolerated procedure jb2 well. 14:18 XRAY Chest (1 view) In Process Unspecified. EDMS 14:34 Jericho Magdaleno MD is Referral Physician. ps1 14:41 IV discontinued, intact, bleeding controlled, No redness/swelling at site. Pressure aj dressing applied. Administered Medications: No medications were administered Outcome: 14:34 Discharge ordered by MD. ps1 14:41 Discharged to home ambulatory. aj 14:41 Condition: good 14:41 Discharge instructions given to patient, Instructed on discharge instructions, follow up and referral plans. medication usage, Demonstrated understanding of instructions, follow-up care, medications, Prescriptions given X 1. 14:43 Patient left the ED. aj Signatures: Dispatcher [employer] EDMS Juan Zayas jb1 Jade Piña, Marguerite Iniguez RN, ch, RN RN aj Rivera, Mary mr ZelayaSaravanan2 Marguerite Rivera, teaching music lessons EKG Tat1 Leeroy Escudero RN RN hj Singer, Phillip, MD MD ps1 Corrections: (The following items were deleted from the chart) 12:59 12:57 Pulse 84bpm; Resp 16bpm; Pulse Ox 99% RA; Temp 98.0F Oral; 79.38 kg; Height 5 ft. hj 3 in.; BMI: 31.0; hj
--- NOTE | 2019-04-01 14:35 | EDPHYS ---
Physician Documentation [facility] Name: Vivian Bautista Age: 53 yrs Sex: Female : 1965 Arrival Date: 04/01/2019 Time: 12:47 Bed 6 Private MD: LINDSAY Physician Tom Conklin HPI: 04/01 14:37 This 53 yrs old Female presents to ER via Ambulatory with complaints of ps1 Irregular Pulse, Palpitations. 14:[address] Magdaleno. Having intermittent palpitations. States that she noticed them ps1 this morning. No chest pain. Hx of anxiety. No CAD in past. Has HTN on amlodipine. BP normal. Otherwise compliant with medications. BS elevated at times. Has been seen for these complaints before. Reportedly hypo mag but does not like taking the medication because it causes her to have loose stools. . 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 - Social history:: Smoking status: Patient/guardian denies using tobacco, Patient/guardian denies using alcohol, street drugs. - Ebola Screening: : Patient negative for fever greater than or equal to 101.5 degrees Fahrenheit, and additional compatible Ebola Virus Disease symptoms Patient denies exposure to infectious person Patient denies travel to an Ebola-affected area in the 21 days before illness onset No symptoms or risks identified at this time. ROS: 14:37 Constitutional: Negative for fever, chills, and weight loss, Eyes: Negative for injury, ps1 pain, redness, and discharge, ENT: Negative for injury, pain, and discharge, Respiratory: Negative for shortness of breath, cough, wheezing, and pleuritic chest pain, Abdomen/GI: Negative for abdominal pain, nausea, vomiting, diarrhea, and constipation, MS/Extremity: Negative for injury and deformity, Skin: Negative for injury, rash, and discoloration, Neuro: Negative for headache, weakness, numbness, tingling, and seizure. 14:37 Cardiovascular: Positive for palpitations. Exam: 14:37 Constitutional: This is a well developed, well nourished patient who is awake, alert, ps1 and in no acute distress. Head/Face: Normocephalic, atraumatic. Eyes: Pupils equal round and reactive to light, extra-ocular motions intact. Lids and lashes normal. Conjunctiva and sclera are non-icteric and not injected. Chest/axilla: Normal chest wall appearance and motion. Nontender with no deformity. No lesions are appreciated. Cardiovascular: Regular rate and rhythm. No gallops, murmurs, or rubs. Normal PMI, no JVD. No pulse deficits. Respiratory: Lungs have equal breath sounds bilaterally, clear to auscultation and percussion. No rales, rhonchi or wheezes noted. No increased work of breathing, no retractions or nasal flaring. Abdomen/GI: Soft, non-tender, with normal bowel sounds. No distension or tympany. No guarding or rebound. No evidence of tenderness throughout. Skin: Warm, dry with normal turgor. Normal color with no rashes, no lesions, and no evidence of cellulitis. MS/ Extremity: Pulses equal, no cyanosis. Neurovascular intact. Full, normal range of motion. Neuro: Awake and alert, GCS 15, oriented to person, place, time, and situation. Cranial nerves II-XII grossly intact. Sensory grossly intact. Psych: Awake, alert, with orientation to person, place and time. Behavior, mood, and affect are within normal limits. Vital Signs: 12:57 BP 123 / 72; Pulse 84; Resp 16; Temp 98.0(O); Pulse Ox 99% on R/A; Weight 79.38 kg; hj Height 5 ft. 3 in. (160.02 cm); 13:51 BP 126 / 77; Pulse 80; Resp 12; Temp 98.1; Pulse Ox 99% on R/A; Pain 2/10; ch 12:57 Body Mass Index 31.00 (79.38 kg, 160.02 cm) MDM: 13:07 Patient medically screened. ps1 14:40 Data reviewed: vital signs, nurses notes, and as a result, I will discharge patient. ps1 Counseling: I had a detailed discussion with the patient and/or guardian regarding: the historical points, exam findings, and any diagnostic results supporting the discharge/admit diagnosis, lab results, radiology results, the need for outpatient follow up, to return to the emergency department if symptoms worsen or persist or if there are any questions or concerns that arise at home. 04/01 13:32 Order name: CBC with Diff; Complete Time: 14:05 ps1 04/01 13:32 Order name: Magnesium; Complete Time: 14:23 ps1 04/01 13:32 Order name: NT PRO-BNP; Complete Time: 14:23 ps1 04/01 13:32 Order name: PT-INR; Complete Time: 14:05 ps1 04/01 13:32 Order name: Troponin (emerg Dept Use Only); Complete Time: 14:23 ps1 04/01 13:32 Order name: CMP; Complete Time: 14:23 ps1 04/01 13:32 Order name: XRAY Chest (1 view); Complete Time: 14:33 ps1 04/01 13:32 Order name: EKG; Complete Time: 13:35 ps1 04/01 13:32 Order name: Cardiac monitoring; Complete Time: 14:30 ps1 04/01 13:32 Order name: EKG - Nurse/Tech; Complete Time: 14:30 ps1 04/01 13:32 Order name: IV Saline Lock; Complete Time: 14:30 ps1 04/01 13:32 Order name: Labs collected and sent; Complete Time: 14:31 ps1 04/01 13:32 Order name: O2 Per Protocol; Complete Time: 14:31 ps1 04/01 13:33 Order name: DD; Complete Time: 14:23 ps1 04/01 13:32 Order name: O2 Sat Monitoring; Complete Time: 14:31 ps1 Administered Medications: No medications were administered Disposition: 04/01/19 14:34 Discharged to Home. Impression: Palpitations, Hypomagnesemia. - Condition is Stable. - Discharge Instructions: Hypomagnesemia, Palpitations. - Prescriptions for magnesium oxide - take 1 tablet by ORAL route once daily; 30 tablet. - Medication Reconciliation Form, Thank You Letter, Antibiotic Education, Prescription Opioid Use form. - Follow up: Jericho Magdaleno MD; When: Tomorrow; Reason: Further diagnostic work-up, Recheck today's complaints, Re-evaluation by your physician. Follow up: Emergency Department; When: As needed; Reason: Worsening of condition. - Problem is new. - Symptoms are unchanged. Signatures: Dispatcher [employer] EDMS Jade Piña RN Marguerite Iniguez ch, RN RN aj Joaquin, Henry RN Tom Wesley MD MD ps1 Corrections: (The following items were deleted from the chart) 14:43 14:34 04/01/2019 14:34 Discharged to Home. Impression: Palpitations; Hypomagnesemia. aj Condition is Stable. Forms are Medication Reconciliation Form, Thank You Letter, Antibiotic Education, Prescription Opioid Use. Follow up: Jericho Magdaleno; When: Tomorrow; Reason: Further diagnostic work-up, Recheck today's complaints, Re-evaluation by your physician. Follow up: Emergency Department; When: As needed; Reason: Worsening of condition. Problem is new. Symptoms are unchanged. ps1
--- NOTE | 2019-04-01 19:42 | EKG ---
Test Date: 2019-04-01 Test Time: 12:58:48 Taker Away: JARVIS MEASUREMENT RESULTS: Intervals: Rate: 86 VA: 148 QRSD: 86 QT: 354 QTc: 423 Baker: P: 52 VA: 148 QRS: 60 T: -83 INTERPRETIVE STATEMENTS: Normal sinus rhythm T wave abnormality, consider inferolateral ischemia Abnormal ECG Compared to ECG 05/22/2017 18:34:04 T-wave abnormality now present ST (T wave) deviation no longer present Possible ischemia still present Electronically Signed On 04-01-19 19:40:24 CDT by John Espinal
== END 2019-04-01 14:43 | disposition home or self-care (01) ==
LOC: ER 12:46
DX: E83.42 Hypomagnesemia (principal); I10 Essential (primary) hypertension; Z88.8 Allergy status to other drugs, medicaments and biological substances
CPT/HCPCS: 36415; 71045; 80053; 83735; 83880; 84484; 85025; 85379; 85610; 93005; 99285

== ENCOUNTER 2020-11-29 12:50 | Emergency (ER) | payer OTHER ==
--- OUTSIDE RECORDS SUMMARY | 2020-11-29 12:53 | XMS REPORT | Continuity of Care Document ---
:1965 Author Organization [facility] t Address [address] [place] [address] [address] [place] [address] Care Team Providers Name Role Phone Tan Wilson MD Attending Clinician Problems This patient has no known problems. Allergies, Adverse Reactions, Alerts Allergy Allergy Status Severity Reaction(s) Onset Inactive Treating Comm ents Source Name Type Date Date Clinician Keiko Allergy Active [facility] Social History Smoking Status Start Date Stop Date Source Former Smoker [facility] Medications Ordered Filled Start Stop Current Ordering Indication Dosage Frequency Signature Comments Components Source Medication Medication Date Date Medication? Clinician (SIG) Name Name Abilify 5 Abilify 5 No 1 Q1D Abilify 5 [facility] mg tablet mg tablet mg tablet da Take 1 Take 1 Take 1 Medical tablet tablet tablet Group every day every day every day by oral by oral by oral route for route for route for 30 days. 30 days. 30 days. acetaminoph acetaminoph No acetaminop [facility] en 300 en 300 hen 300 da mg-codeine mg-codeine mg-codeine Medical 60 mg 60 mg 60 mg Group tablet take tablet take tablet 1 -2 1 -2 take 1 -2 tablets PRN tablets PRN tablets for for PRN for Headaches Headaches Headaches amlodipine amlodipine No amlodipine [facility] 10 mg 10 mg 10 mg da tablet take tablet take tablet Medical one tablet one tablet take one Group daily daily tablet daily butalbital- butalbital- No butalbital [facility] acetaminoph acetaminoph -acetamino da en-caffeine en-caffeine phen-caffe Medical 50 mg-325 50 mg-325 ine 50 Travis up mg-40 mg mg-40 mg mg-325 capsule PRN capsule PRN mg-40 mg capsule PRN clotrimazol clotrimazol No clotrimazo [facility] e 1 % e 1 % le 1 % da topical topical topical Medica l cream cream cream Group cyclobenzap cyclobenzap No cyclobenza [facility] rine 10 mg rine 10 mg saroj 10 da tablet take tablet take mg tablet Medical 1 HS daily 1 HS daily take 1 HS Group daily duloxetine duloxetine No 2capsul Q1D duloxetine [facility] 60 mg 60 mg e(s) 60 mg da capsule,del capsule,del capsule,de Medical ayed ayed layed Group release release release Take 2 Take 2 Take 2 capsules capsules capsules every day every day every day by oral by oral by oral route for route for route for 30 days. 30 days. 30 days. fluticasone fluticasone No fluticason [facility] propionate propionate e da 50 50 propionate Medical mcg/actuati mcg/actuati 50 G roup on nasal on nasal mcg/actuat spray,suspe spray,suspe ion nasal nsion one nsion one spray,susp spray each spray each ension one nosrtril nosrtril spray each daily daily nosrtril daily gabapentin gabapentin No gabapentin [facility] 600 mg 600 mg 600 mg da tablet take tablet take tablet Medical 1 tablet 1 tablet take 1 Group TID TID tablet TID hydroxyzine hydroxyzine No hydroxyzin [facility] HCl 10 mg HCl 10 mg e HCl 10 d a tablet take tablet take mg tablet Medical 1 tablet 1 tablet take 1 Group nightly PRN nightly PRN tablet nightly PRN Kombiglyze Kombiglyze No Kombiglyze [facility] XR 2.5 XR 2.5 XR 2.5 da mg-1,000 mg mg-1,000 mg mg-1,000 Medical tablet,exte tablet,exte mg G roup nded nded tablet,ext release release ended take 2 take 2 release tablets tablets take 2 once a day once a day tablets once a day loperamide loperamide No loperamide [facility] 2 mg 2 mg 2 mg da capsule capsule capsule Medica l TAKE 1 TAKE 1 TAKE 1 Group CAPSULE BY CAPSULE BY CAPSULE BY MOUTH MOUTH MOUTH NEEDED NEEDED NEEDED losartan losartan No losartan [facility] 100 mg 100 mg 100 mg da tablet take tablet take tablet Medical one tablet one tablet take one Group daily daily tablet daily OneTouch OneTouch No OneTouch [facility] Verio test Verio test Verio test da strips strips strips Medical check sugar check sugar check Group once daily once daily sugar once daily pioglitazon pioglitazon No pioglitazo [facility] e 45 mg e 45 mg ne 45 mg da tablet take tablet take tablet Medical once daily once daily take once Group daily pravastatin pravastatin No pravastati [facility] 20 mg 20 mg n 20 mg da tablet take tablet take tablet Medical one daily one daily take one G roup daily sumatriptan sumatriptan No sumatripta [facility] 50 mg 50 mg n 50 mg da tablet take tablet take tablet Medical 1 PRN 1 PRN take 1 PRN Group Vital Signs Vital Name Observation Time Observation Value Comments Source Height 2020-06-16 00:00:00 62 [in_i] [facility] BMI (Body Mass 2020-06-16 00:00:00 33.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) Group Body Weight 2020-06-16 00:00:00 2912 [oz_av] [facility] Height 2020-05-19 00:00:00 62 [in_i] [facility] BMI (Body Mass 2020-05-19 00:00:00 33.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) Group Body Weight 2020-05-19 00:00:00 2917 [oz_av] [facility] BP Diastolic 2020-04-20 00:00:00 82 mm[Hg] [facility] Height 2020-04-20 00:00:00 62 [in_i] [facility] BMI (Body Mass 2020-04-20 00:00:00 33.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) Group BP Systolic 2020-04-20 00:00:00 123 mm[Hg] [facility] Body Weight 2020-04-20 00:00:00 2917 [oz_av] [facility] Procedures Procedure Date / Time Performed Performing Clinician Sour e Delivery [facility] Hysterectomy [facility] Encounters Start End Encounter Admission Attending Care Care Encounter Source Date/Time Date/Time Type Type Clinicians Facility Department ID 2020-10-12 2020-10-12 Office NATHAN Wilson [id number] 14:43:10 15:31:33 Visit [facility] [id number] [facility] [id number] [facility] [id number] 2020-06-16 2020-06-16 Sean QUEZADAG [place] - [id number] [facility] 00:00:00 00:00:00 Jadyn Dorado Medical MD: [address] [place] [address] [address], [place] [address] , Ph. 2020-05-19 2020-05-19 Sean QUEZADAG [place] - [id number] [facility] 00:00:00 00:00:00 Jadyn Dorado MD: [address] [place] [address] [address], [place] [address] , Ph. 2020-04-20 2020-04-20 Sean QUEZADA [place] - [id number] [facility] 00:00:00 00:00:00 Jadyn Dorado MD: [address] [place] [address] [address], [place] [address] , Ph. Results This patient has no known results.
[2020-11-29 15:34] LABS: Absolute Lymphocytes (CBC) 1.9 K/uL (0.7-4.9); Basophils % 0.3 % (0-1.3); Hematocrit 41.6 % (36.0-45.0); Lymphocytes % 16.7 % (15.3-44.8); MPV 8.2 fL (7.6-11.3); RBC Red Blood Cell Count 4.77 M/uL (3.86-4.86)
[2020-11-29 15:44] LABS: Potassium 3.8 mmol/L (3.5-5.1)
[2020-11-29] MEDS ORDERED: HYDROCODONE/CHLORPHEN 5 ML/OSYR ONE (16:01)
[2020-11-29] MEDS ORDERED: NA CHLORIDE 0.9% 1,000 ML ONE (16:01)
--- NOTE | 2020-11-29 16:20 | RAD REPORT ---
EXAM DESCRIPTION: Corey Single View11/29/2020 4:09 pm CLINICAL HISTORY: cough COMPARISON: 2018 FINDINGS: The lungs appear clear of acute infiltrate. The heart is normal size IMPRESSION: No acute abnormalities displayed
[2020-11-29 16:50] LABS: SARS-COV-2 RT PCR NEGATIVE (NEGATIVE)
--- NOTE | 2020-11-29 17:15 | EDPHYS ---
Physician Documentation [facility] Name: Vivian Bautista Age: 55 yrs Sex: Female : 1965 Arrival Date: 11/29/2020 Time: 12:59 Bed 13 Private MD: ED Physician Joseph Barajas HPI: 11/29 17:07 This 55 yrs old Female presents to ER via Ambulatory with complaints of pm1 Cough, Diarrhea, Fever. 17:07 The patient or guardian reports cough. Onset: The symptoms/episode began/occurred 2 pm1 day(s) ago. Severity of symptoms: in the emergency department the symptoms are unchanged. Modifying factors: The symptoms are alleviated by nothing, the symptoms are aggravated by nothing. Associated signs and symptoms: Pertinent positives: diarrhea, sore throat, post nasal drainage, subjective fever, chest pain with deep breathing and coughing, generalized weakness. Patient had COVID and strep swab on Monday but has not received the results yet. Historical: - Allergies: 13:00 cyclobenzaprine HCl; sv - PMHx: 13:00 Diabetes - NIDDM; Hypertension; Anxiety; irregular heartbeat; Migraines; sv - PSHx: 13:00 Hysterectomy; ; sv - Immunization history:: Adult Immunizations up to date. - Social history:: Smoking status: Reported history of juuling and/or vaping. ROS: 17:07 Cardiovascular: Negative for chest pain, palpitations, and edema. pm1 17:07 Back: Negative for injury and pain, : Negative for injury, bleeding, discharge, and swelling, MS/Extremity: Negative for injury and deformity, Skin: Negative for injury, rash, and discoloration. 17:07 Constitutional: Positive for body aches, subjective fever. 17:07 Respiratory: Positive for cough, Negative for shortness of breath, wheezing. 17:07 Abdomen/GI: Positive for diarrhea, Negative for abdominal pain, nausea and vomiting. 17:07 Neuro: Positive for weakness. Exam: 17:07 Constitutional: This is a well developed, well nourished patient who is awake, alert, pm1 and in no acute distress. Head/Face: Normocephalic, atraumatic. 17:07 Back: No spinal tenderness. No costovertebral tenderness. Full range of motion. Skin: Warm, dry with normal turgor. Normal color with no rashes, no lesions, and no evidence of cellulitis. MS/ Extremity: Pulses equal, no cyanosis. Neurovascular intact. Full, normal range of motion. 17:07 Cardiovascular: Exam negative for acute changes, Rate: normal, Rhythm: regular, Pulses: no pulse deficits are appreciated. 17:07 Respiratory: Exam negative for acute changes, respiratory distress, shortness of breath, Breath sounds: are clear throughout, no bronchial sounds, no decreased breath sounds, no rales, rhonchi, no wheezing. 17:07 Abdomen/GI: Exam negative for acute changes, Inspection: abdomen appears normal, Palpation: abdomen is soft and non-tender, in all quadrants. 17:07 Neuro: Exam negative for acute changes, Orientation: is normal, Mentation: is normal, Motor: is normal, moves all fours. Vital Signs: 13:00 BP 125 / 84; Pulse 108; Resp 20; Temp 99.2(O); Pulse Ox 99% on R/A; Weight 81.65 kg; sv Height 5 ft. 2 in. (157.48 cm); 15:17 BP 136 / 100; Pulse 92; Resp 18; Pulse Ox 99% ; dm14 15:45 BP 115 / 71; Pulse 92; Resp 18; Pulse Ox 100% ; dm14 16:25 BP 125 / 77; Pulse 96; Resp 18; Pulse Ox 98% ; dm14 13:00 Body Mass Index 32.92 (81.65 kg, 157.48 cm) sv MDM: 14:36 Patient medically screened. [facility] 17:13 Data reviewed: vital signs. Data interpreted: Pulse oximetry: on room air is 98 %. pm1 Interpretation: normal. Counseling: I had a detailed discussion with the patient and/or guardian regarding: the historical points, exam findings, and any diagnostic results supporting the discharge/admit diagnosis, lab results, radiology results, the need for outpatient follow up, to return to the emergency department if symptoms worsen or persist or if there are any questions or concerns that arise at home. 11/29 15:05 Order name: Strep; Complete Time: 16:19 pm1 11/29 15:05 Order name: CBC with Diff; Complete Time: 16:19 pm1 11/29 15:05 Order name: BMP; Complete Time: 16:19 pm1 11/29 15:47 Order name: Throat Culture EDMS 11/29 15:05 Order name: CXR XRAY; Complete Time: 16:20 pm1 11/29 15:05 Order name: Droplet/Contact Precautions; Complete Time: 15:34 pm1 11/29 15:05 Order name: Labs collected and sent; Complete Time: 15:34 pm1 11/29 15:05 Order name: O2 Per Protocol; Complete Time: 15:34 pm1 11/29 15:05 Order name: IV Saline Lock; Complete Time: 15:34 pm1 11/29 16:50 Order name: COVID-19/FLU A+B; Complete Time: 17:06 EDMS Administered Medications: 15:45 Drug: NS 0.9% 1000 ml Route: IV; Rate: 1000 ml; Site: right antecubital; dm14 17:55 Follow up: IV Status: Completed infusion; IV Intake: 1000ml dm14 15:45 Drug: Tussionex Pennkinetic ER 5 ml Route: PO; dm14 17:55 Follow up: Response: No adverse reaction dm14 Disposition: 11/30 06:23 Co-signature as Attending Physician, Joseph Barajas MD I agree with the assessment and milton plan of care. Disposition: 11/29/20 17:14 Discharged to Home. Impression: Acute upper respiratory infection, unspecified, Diarrhea, unspecified. - Condition is Stable. - Discharge Instructions: Diarrhea, Adult, Upper Respiratory Infection, Adult. - Prescriptions for Guaifenesin AC 10- 100 mg/5 mL Oral Liquid - take 10 milliliter by ORAL route every 4 hours As needed; 240 milliliter. Albuterol Sulfate 90 mcg/actuation - inhale 1-2 puff by INHALATION route every 4-6 hours; 1 Inhaler. - Medication Reconciliation Form, Thank You Letter, Antibiotic Education, Prescription Opioid Use form. - Follow up: Emergency Department; When: As needed; Reason: Worsening of condition. Follow up: Private Physician; When: 2 - 3 days; Reason: Recheck today's complaints, Continuance of care, Re-evaluation by your physician. - Problem is new. - Symptoms have improved. Signatures: Dispatcher [employer] Bernadette Cortez RN RN sv Anderson, Corey, MD MD cha Marinas, Patrick, GOLF BALL TRIMMER GOLF BALL TRIMMER pm1 McInroy, Sherron, RN RN dm14 Corrections: (The following items were deleted from the chart) 11/29 15:32 15:05 CORONAVIRUS+MR.LAB.BRZ ordered. EDDE EDDE 16:02 15:05 Influenza Screen (A \T\ B)+BA.LAB.BRZ ordered. [facility] EDDE 18:26 17:14 11/29/2020 17:14 Discharged to Home. Impression: Acute upper respiratory dm14 infection, unspecified; Diarrhea, unspecified. Condition is Stable. Forms are Medication Reconciliation Form, Thank You Letter, Antibiotic Education, Prescription Opioid Use. Follow up: Emergency Department; When: As needed; Reason: Worsening of condition. Follow up: Private Physician; When: 2 - 3 days; Reason: Recheck today's complaints, Continuance of care, Re-evaluation by your physician. Problem is new. Symptoms have improved. pm1
--- NOTE | 2020-11-29 17:15 | ER ---
Nurse's Notes [facility] Name: Vivian Bautista Age: 55 yrs Sex: Female : 1965 Arrival Date: 11/29/2020 Time: 12:59 Bed 13 Private MD: Diagnosis: Acute upper respiratory infection, unspecified;Diarrhea, unspecified Presentation: 11/29 12:59 Chief complaint: Patient states: post nasal drip, fever subjective, fever, lungs sv "crunching", generalized weakness, diarrhea, and sore throat since Monday. Got tested for strep and COVID on Monday but hasn't gotten the results. Coronavirus screen: Client denies travel out of the [place] in the last 14 days. Client presents with at least one sign or symptom that may indicate coronavirus-19. Standard/surgical mask placed on the client. Provider contacted for isolation considerations. Ebola Screen: No symptoms or risks identified at this time. Risk Assessment: Do you want to hurt yourself or someone else? Patient reports no desire to harm self or others. Onset of symptoms was November 27, 2020. 12:59 Method Of Arrival: Ambulatory sv 12:59 Acuity: FOREST 3 sv 13:00 Initial Sepsis Screen: Does the patient meet any 2 criteria? HR > 90 bpm. No. Patient's sv initial sepsis screen is negative. Does the patient have a suspected source of infection? No. Patient's initial sepsis screen is negative. Triage Assessment: 13:03 General: Appears in no apparent distress. uncomfortable, Behavior is calm, cooperative, sv appropriate for age. Neuro: Level of Consciousness is awake, alert, obeys commands, Oriented to person, place, time, situation, Gait is steady. Respiratory: Airway is patent Respiratory effort is even, unlabored, Respiratory pattern is regular, symmetrical. Historical: - Allergies: 13:00 cyclobenzaprine HCl; sv - PMHx: 13:00 Diabetes - NIDDM; Hypertension; Anxiety; irregular heartbeat; Migraines; sv - PSHx: 13:00 Hysterectomy; ; sv - Immunization history:: Adult Immunizations up to date. - Social history:: Smoking status: Reported history of juuling and/or vaping. Screenin:15 Abuse screen: Denies threats or abuse. Denies injuries from another. Nutritional dm14 screening: No deficits noted. Tuberculosis screening: No symptoms or risk factors identified. Fall Risk None identified. Assessment: 16:15 Reassessment: Pt feeling cold. warm blanket given. Occasional congested cough heard. dm14 GI: No deficits noted. 16:23 General: Appears in no apparent distress. comfortable, Behavior is calm, cooperative, dm14 appropriate for age. Pain: Complains of pain in Pt complaining of generalized body aches Pain does not radiate. Pain currently is 6 out of 10 on a pain scale. 18:00 Reassessment: No changes from previously documented assessment. dm14 Vital Signs: 13:00 BP 125 / 84; Pulse 108; Resp 20; Temp 99.2(O); Pulse Ox 99% on R/A; Weight 81.65 kg; sv Height 5 ft. 2 in. (157.48 cm); 15:17 BP 136 / 100; Pulse 92; Resp 18; Pulse Ox 99% ; dm14 15:45 BP 115 / 71; Pulse 92; Resp 18; Pulse Ox 100% ; dm14 16:25 BP 125 / 77; Pulse 96; Resp 18; Pulse Ox 98% ; dm14 13:00 Body Mass Index 32.92 (81.65 kg, 157.48 cm) sv ED Course: 12:59 Patient arrived in ED. sv 13:00 Triage completed. sv 13:03 Arm band placed on. sv 14:21 Sherron Diamond, COURTNEY is Primary Nurse. dm14 14:35 Javi Richardson NP is PHCP. pm1 14:35 Joseph Barajas MD is Attending Physician. pm1 15:30 Initial lab(s) drawn, by me, sent to lab. COVID swab sent to lab. Flu and/or RSV swab jp3 sent to lab. Strep swab sent to lab. Inserted saline lock: 20 gauge in right antecubital area, using aseptic technique. Blood collected. 15:30 Patient maintains SpO2 saturation greater than 95% on room air. jp3 15:34 Bed in low position. Call light in reach. Side rails up X 1. Verbal reassurance given. jp3 Pulse ox on. NIBP on. 16:09 CXR XRAY In Process Unspecified. EDMS 16:15 No provider procedures requiring assistance completed. dm14 18:00 IV discontinued, intact, bleeding controlled, No redness/swelling at site. Pressure dm14 dressing applied. Administered Medications: 15:45 Drug: NS 0.9% 1000 ml Route: IV; Rate: 1000 ml; Site: right antecubital; dm14 17:55 Follow up: IV Status: Completed infusion; IV Intake: 1000ml dm14 15:45 Drug: Tussionex Pennkinetic ER 5 ml Route: PO; dm14 17:55 Follow up: Response: No adverse reaction dm14 Intake: 17:55 IV: 1000ml; Total: 1000ml. dm14 Outcome: 17:14 Discharge ordered by MD. pm1 18:00 Discharged to home ambulatory. dm14 18:00 Condition: stable 18:00 Discharge instructions given to patient, Instructed on discharge instructions, follow up and referral plans. medication usage, Demonstrated understanding of instructions, follow-up care, medications, Prescriptions given X 2. 18:26 Patient left the ED. dm14 Signatures: Dispatcher [employer] EDBernadette Zepeda RN RN Javi Richardson NP [employer] TOP pm1 Saji Jack 3 Sherron Diamond RN RN dm14 Corrections: (The following items were deleted from the chart) 13:03 12:59 Chief complaint: Patient states: post nasal drip, fever subjective, fever, lungs sv "crunching", generalized weakness, diarrhea, and sore throat since Monday. sv 13:03 12:59 Chief complaint: Patient states: post nasal drip, fever subjective, fever, lungs sv "crunching", generalized weakness, diarrhea, and sore throat since Monday. Got tested for strep and COVID on Monday but hasn't gotten the results. sv 13:03 13:00 Pulse 108bpm; Resp 20bpm; Pulse Ox 99% RA; Temp 99.2F Oral; 81.65 kg; Height 5 sv ft. 2 in.; BMI: 32.9; sv
[2020-11-29 20:08] VITALS: TEMP 99.2
[2020-11-29 20:12] VITALS: BP 125/77; O2SAT 98
== END 2020-11-29 18:26 | disposition home or self-care (01) ==
LOC: ER 12:50
DX: J06.9 Acute upper respiratory infection, unspecified (principal); R19.7 Diarrhea, unspecified; Z20.822 Contact with and (suspected) exposure to COVID-19; I10 Essential (primary) hypertension; Z88.1 Allergy status to other antibiotic agents
CPT/HCPCS: 96361; 87070; 85025; 80048; 36415; 87081; 0240U; 71045; 96360; 99284; J7030